=== PATIENT | female | born 1960 | race Caucasian/White ===

== ENCOUNTER → 2020-10-10 | Day surgery (SDC) | payer OTHER ==
[~2020-10-10] VITALS: Ht 157.5 cm; Wt 74.9 kg
[~2020-10-10] MED LIST: BISOPROLOL-HCT1 EAC1 PO; CLONAZEPAM0.5 MG PO; PRILOSEC20 MG PO; VENLAFAXINE HC150 MG PO
== END | disposition home or self-care (01) ==
LOC: FAS 10-06 09:45
DX: K31.7 Polyp of stomach and duodenum (principal); K29.70 Gastritis, unspecified, without bleeding; K21.9 Gastro-esophageal reflux disease without esophagitis; K44.9 Diaphragmatic hernia without obstruction or gangrene; E78.00 Pure hypercholesterolemia, unspecified; I10 Essential (primary) hypertension; M17.11 Unilateral primary osteoarthritis, right knee; F41.9 Anxiety disorder, unspecified; G47.30 Sleep apnea, unspecified; Z88.8 Allergy status to other drugs, medicaments and biological substances; Z79.899 Other long term (current) drug therapy
CPT/HCPCS: J2250; J2704; J7120